=== PATIENT | female | born 1960 | race Caucasian/White ===

== ENCOUNTER 2020-06-22 09:55 | Emergency (ER) | payer BC, OTHER ==
--- NOTE | 2020-06-22 10:11 | EDM.PDOC ---
ED HPI GENERAL MEDICAL PROBLEM - General Stated Complaint: CHEST PAIN Time Seen by Provider: 06/22/20 09:57 Source of Information: Reports: Patient, Family History Limitations: Reports: No Limitations - History of Present Illness INITIAL COMMENTS - FREE TEXT/NARRATIVE: c/o pain in arms and chest x 12h pt states she was home yesterday, felt well, at 10p she had sharp pain in her R forearm that radiated up her arm across her chest and down her LUE, pain more in arms than chest, no pain with moving arms or shoulders, no pain with DB, shower did not help no cough, no sob, no n/v, no f/c/d not had chest or arm pain before pt was anxious on arrival, hyperventilating, patting her chest with her hand, she became more relaxed after MD and RN evaluation, discomfort resolved spontaneously on no meds no cardiac hx Meds: none, took ASA x 2 early this AM SH: smoked < 1 ppd x 3-5y, stopped 40y ago, desk job, 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, 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), here with FH: bro and father with CAD - Related Data Allergies Allergy/AdvReac Type Severity Reaction Status Date / Time Penicillins Allergy Unknown Other Verified 06/22/20 10:21 Home Meds: Home Meds NK [No Known Home Meds] 06/22/20 [History] ED ROS GENERAL - Review of Systems Review Of Systems: See Below Constitutional: Reports: No Symptoms HEENT: Reports: No Symptoms Respiratory: Reports: No Symptoms Cardiovascular: Reports: Chest Pain Endocrine: Reports: No Symptoms GI/Abdominal: Reports: No Symptoms : Reports: No Symptoms Musculoskeletal: Reports: Arm Pain Skin: Reports: No Symptoms Neurological: Reports: No Symptoms Psychiatric: Reports: No Symptoms Hematologic/Lymphatic: Reports: No Symptoms Immunologic: Reports: No Symptoms ED EXAM, GENERAL - Physical Exam Exam: See Below Exam Limited By: No Limitations General Appearance: Alert, WD/WN, Other (anxious, skin dry) Ears: Hearing Grossly Normal Nose: Normal Inspection Throat/Mouth: Normal Inspection, Normal Lips, Normal Voice, No Airway Compromise Head: Atraumatic, Normocephalic Neck: Normal Inspection, Supple, Non-Tender, Full Range of Motion. No: Lymph adenopathy (R), Lymphadenopathy (L) Respiratory/Chest: No Respiratory Distress, Lungs Clear, Normal Breath Sounds, Chest Non-Tender Cardiovascular: Regular Rate, Rhythm, No Edema, No Murmur GI/Abdominal: Soft, Non-Tender, No Distention Extremities: Normal Inspection, Normal Range of Motion, Non-Tender, No Pedal Edema, Other (chest wall NT, AC and GH joints NT, ROM of RUE without discomfort, no point tender) Neurological: Alert, Oriented, CN II-XII Intact, Normal Cognition, No Motor/Sensory Deficits Psychiatric: Anxious Skin Exam: Warm, Dry, Intact, Normal Color, No Rash Lymphatic: No Adenopathy #1 Interpretation EKG Interpretation Comments: normal, no ST change, no acute change, no comparison Course - Vital Signs Last Recorded V/S: Last Vital Signs Temp 36.3 C 06/22/20 10:00 Pulse 92 06/22/20 10:00 Resp 15 06/22/20 11:29 BP 141/76 H 06/22/20 11:29 Pulse Ox 98 06/22/20 11:29 - Orders/Labs/Meds Orders: Active Orders 24 hr Category Date Time Status EKG Documentation Completion [RC] ASDIRECTED Care 06/22/20 10:04 Ordered Chest 2V [CR] Stat Exams 06/22/20 10:03 Ordered EKG 12 Lead [EK] Routine Ther 06/22/20 10:03 Ordered Labs: Laboratory Tests 06/22/20 06/22/20 06/22/20 Range/Units 10:20 10:20 10:20 WBC 5.0 (3.0-10.3) x10-3/uL RBC 4.30 (3.60-5.20) x10(6)uL Hgb 13.7 (11.4-15.5) g/dL Hct 40.9 (34.2-48.2) % MCV 95.1 (76.7-100.5) fL MCH 31.8 (23.9-33.9) pg MCHC 33.5 (31.9-34.8) g/dL RDW 13.6 (12.3-16.5) % Plt Count 241 (151-488) x10(3)uL MPV 8.1 (7.1-12.4) fL Neut % (Auto) 59.5 (30.8-76.2) % Lymph % (Auto) 31.7 (18.4-52.1) % Ross % (Auto) 5.3 (4.4-15.7) % Eos % (Auto) 2.8 (0.6-8.1) % Baso % (Auto) 0.7 (0.2-1.5) % Neut # (Auto) 3.0 (1.5-6.3) x10-3/uL Lymph # (Auto) 1.6 (1.0-4.4) x10-3/uL Ross # (Auto) 0.3 (0.3-1.0) x10-3/uL Eos # (Auto) 0.1 (0.0-0.8) x10-3/uL Baso # (Auto) 0.0 (0.0-0.1) x10-3/uL D-Dimer, Quantitative 0.19 (0.0-0.59) mg/LFEU Sodium 142 (135-145) mmol/L Potassium 4.2 (3.5-5.3) mmol/L Chloride 104 (100-110) mmol/L Carbon Dioxide 25 (21-32) mmol/L BUN 25 H (7-18) mg/dL Creatinine 1.0 (0.55-1.02) mg/dL Est Cr Clr Drug Dosing 51.66 mL/min Estimated GFR (MDRD) 57 L (>60) BUN/Creatinine Ratio 25.0 H (9-20) Glucose 150 H (80-116) mg/dL Hemoglobin A1c (<5.7) % Calcium 8.8 (8.6-10.2) mg/dL Total Bilirubin 0.4 (0.1-1.3) mg/dL AST 17 (5-25) IU/L ALT 24 (12-36) U/L Alkaline Phosphatase 60 (56-112) IU/L Troponin I (4.0-60.3) pg/mL C-Reactive Protein (0.5-0.9) mg/dL Total Protein 6.9 (6.0-8.0) g/dL Albumin 3.5 (3.2-4.6) g/dL Globulin 3.4 g/dL Albumin/Globulin Ratio 1.0 TSH, Ultra Sensitive (0.36-3.74) IU/mL Urine Color (YELLOW) Urine Appearance (CLEAR) Urine pH (5.0-6.5) Ur Specific Central (1.010-1.025) Urine Protein (NEGATIVE) mg/dL Urine Glucose (UA) (NORMAL) mg/dL Urine Ketones (NEGATIVE) mg/dL Urine Occult Blood (NEGATIVE) Urine Nitrite (NEGATIVE) Urine Bilirubin (NEGATIVE) Urine Urobilinogen (NEGATIVE) mg/dL Ur Leukocyte Esterase (NEGATIVE) Urine RBC (0-5) Urine WBC (0-5) Ur Epithelial Cells 06/22/20 06/22/20 06/22/20 Range/Units 10:20 10:20 10:20 WBC (3.0-10.3) x10-3/uL RBC (3.60-5.20) x10(6)uL Hgb (11.4-15.5) g/dL Hct (34.2-48.2) % MCV (76.7-100.5) fL MCH (23.9-33.9) pg MCHC (31.9-34.8) g/dL RDW (12.3-16.5) % Plt Count (151-488) x10(3)uL MPV (7.1-12.4) fL Neut % (Auto) (30.8-76.2) % Lymph % (Auto) (18.4-52.1) % Ross % (Auto) (4.4-15.7) % Eos % (Auto) (0.6-8.1) % Baso % (Auto) (0.2-1.5) % Neut # (Auto) (1.5-6.3) x10-3/uL Lymph # (Auto) (1.0-4.4) x10-3/uL Ross # (Auto) (0.3-1.0) x10-3/uL Eos # (Auto) (0.0-0.8) x10-3/uL Baso # (Auto) (0.0-0.1) x10-3/uL D-Dimer, Quantitative (0.0-0.59) mg/LFEU Sodium (135-145) mmol/L Potassium (3.5-5.3) mmol/L Chloride (100-110) mmol/L Carbon Dioxide (21-32) mmol/L BUN (7-18) mg/dL Creatinine (0.55-1.02) mg/dL Est Cr Clr Drug Dosing mL/min Estimated GFR (MDRD) (>60) BUN/Creatinine Ratio (9-20) Glucose (80-116) mg/dL Hemoglobin A1c 5.9 H (<5.7) % Calcium (8.6-10.2) mg/dL Total Bilirubin (0.1-1.3) mg/dL AST (5-25) IU/L ALT (12-36) U/L Alkaline Phosphatase (56-112) IU/L Troponin I 6.9 (4.0-60.3) pg/mL C-Reactive Protein 0.6 (0.5-0.9) mg/dL Total Protein (6.0-8.0) g/dL Albumin (3.2-4.6) g/dL Globulin g/dL Albumin/Globulin Ratio TSH, Ultra Sensitive 1.26 (0.36-3.74) IU/mL Urine Color (YELLOW) Urine Appearance (CLEAR) Urine pH (5.0-6.5) Ur Specific Central (1.010-1.025) Urine Protein (NEGATIVE) mg/dL Urine Glucose (UA) (NORMAL) mg/dL Urine Ketones (NEGATIVE) mg/dL Urine Occult Blood (NEGATIVE) Urine Nitrite (NEGATIVE) Urine Bilirubin (NEGATIVE) Urine Urobilinogen (NEGATIVE) mg/dL Ur Leukocyte Esterase (NEGATIVE) Urine RBC (0-5) Urine WBC (0-5) Ur Epithelial Cells 06/22/20 Range/Units 11:10 WBC (3.0-10.3) x10-3/uL RBC (3.60-5.20) x10(6)uL Hgb (11.4-15.5) g/dL Hct (34.2-48.2) % MCV (76.7-100.5) fL MCH (23.9-33.9) pg MCHC (31.9-34.8) g/dL RDW (12.3-16.5) % Plt Count (151-488) x10(3)uL MPV (7.1-12.4) fL Neut % (Auto) (30.8-76.2) % Lymph % (Auto) (18.4-52.1) % Ross % (Auto) (4.4-15.7) % Eos % (Auto) (0.6-8.1) % Baso % (Auto) (0.2-1.5) % Neut # (Auto) (1.5-6.3) x10-3/uL Lymph # (Auto) (1.0-4.4) x10-3/uL Ross # (Auto) (0.3-1.0) x10-3/uL Eos # (Auto) (0.0-0.8) x10-3/uL Baso # (Auto) (0.0-0.1) x10-3/uL D-Dimer, Quantitative (0.0-0.59) mg/LFEU Sodium (135-145) mmol/L Potassium (3.5-5.3) mmol/L Chloride (100-110) mmol/L Carbon Dioxide (21-32) mmol/L BUN (7-18) mg/dL Creatinine (0.55-1.02) mg/dL Est Cr Clr Drug Dosing mL/min Estimated GFR (MDRD) (>60) BUN/Creatinine Ratio (9-20) Glucose (80-116) mg/dL Hemoglobin A1c (<5.7) % Calcium (8.6-10.2) mg/dL Total Bilirubin (0.1-1.3) mg/dL AST (5-25) IU/L ALT (12-36) U/L Alkaline Phosphatase (56-112) IU/L Troponin I (4.0-60.3) pg/mL C-Reactive Protein (0.5-0.9) mg/dL Total Protein (6.0-8.0) g/dL Albumin (3.2-4.6) g/dL Globulin g/dL Albumin/Globulin Ratio TSH, Ultra Sensitive (0.36-3.74) IU/mL Urine Color Yellow (YELLOW) Urine Appearance Clear (CLEAR) Urine pH 5.0 (5.0-6.5) Ur Specific Central 1.030 H (1.010-1.025) Urine Protein Negative (NEGATIVE) mg/dL Urine Glucose (UA) Normal (NORMAL) mg/dL Urine Ketones Negative (NEGATIVE) mg/dL Urine Occult Blood Negative (NEGATIVE) Urine Nitrite Negative (NEGATIVE) Urine Bilirubin Negative (NEGATIVE) Urine Urobilinogen Normal (NEGATIVE) mg/dL Ur Leukocyte Esterase Negative (NEGATIVE) Urine RBC 0-5 (0-5) Urine WBC 0-5 (0-5) Ur Epithelial Cells Occasional - Re-Assessments/Exams Free Text/Narrative Re-Assessment/Exam: 06/22/20 12:30 BUN inc'd, u/a neg except SG 1.030, BUN may need to be repeated as oupt. Pt did eat cereal with mild for bfast plus fluids. BS 150 c/w pain and stress as A1C is 5.9. TSH neg as well. No evidence of pul or CV issues. CxR 2v is neg on prelim ED read Anxiety and stress appear to have been contributing factors. Pain resolved completely on arrival at ED without meds. Departure - Departure Time of Disposition: 12:27 Disposition: Home, Self-Care 01 Condition: Good Clinical Impression: Bilateral arm pain, Non-cardiac chest pain, Elevated BUN, Hyperglycemia, Mild dehydration Instructions: Nonspecific Chest Pain, Adult, Dehydration, Adult Additional Instructions: For pain and inflammation, take ibuprofen 200 mg 3 tabs and/or acetaminophen 500 mg 2 tabs 4 times a day as needed. No limitation of activities. See your PCP in 2 days for further evaluation and recommendations. Return to Emergency Department if you are feeling worse. Sepsis Event Note (ED) - Focused Exam Vital Signs: Vital Signs Temp Pulse Resp BP Pulse Ox 06/22/20 11:29 15 141/76 H 98 06/22/20 11:15 16 129/88 99 06/22/20 10:45 17 151/77 H 98 06/22/20 10:30 17 138/83 98 06/22/20 10:15 21 H 147/104 H 98 06/22/20 10:00 36.3 C 92 23 H 158/81 H 100 - My Orders Last 24 Hours: My Active Orders 06/22/20 10:03 Chest 2V [CR] Stat EKG 12 Lead [EK] Routine 06/22/20 10:04 EKG Documentation Completion [RC] ASDIRECTED - Assessment/Plan Last 24 Hours: My Active Orders 06/22/20 10:03 Chest 2V [CR] Stat EKG 12 Lead [EK] Routine 06/22/20 10:04 EKG Documentation Completion [RC] ASDIRECTED
[2020-06-22 11:04] LABS: HEMOGLOBIN A1C 5.9 % (<5.7)
--- NOTE | 2020-06-23 12:39 | CR ---
INDICATION: Pain in both upper arms and chest x12 hours. CHEST TWO VIEWS: PA and lateral views of the chest were obtained 06/22/20 - no comparisons. The heart and mediastinum were unremarkable except to note mild tortuous of the aorta. A minimal dextroconvex scoliosis of the upper middle thoracic spine is noted. A definite active infiltrate or effusion was not identified. There is suggestion of exogenous obesity. IMPRESSION: No acute process. MTDD
== END 2020-06-22 12:30 | disposition home or self-care (01) ==
LOC: FB.ED 09:55
DX: R07.89 Other chest pain (principal); M79.602 Pain in left arm; M79.601 Pain in right arm; E86.0 Dehydration; R79.89 Other specified abnormal findings of blood chemistry; Z88.0 Allergy status to penicillin; Z87.891 Personal history of nicotine dependence
CPT/HCPCS: 36415; 71046; 80053; 81001; 83036; 84443; 84484; 85025; 85379; 86140; 93005; 99285-25

== ENCOUNTER 2022-02-18 15:27 | Emergency (ER) | payer OTHER ==
[2022-02-18 15:58] LABS: ESTIMATED GFR 57 mL/min (>60)
[2022-02-18 17:25] LABS: CORONAVIRUS COVID-19 NAA NEGATIVE (NEGATIVE)
== END 2022-02-18 19:30 | disposition home or self-care (01) ==
LOC: FB.ED 15:27
DX: I20.9 Angina pectoris, unspecified (principal); Z88.0 Allergy status to penicillin; Z20.822 Contact with and (suspected) exposure to COVID-19
CPT/HCPCS: 0241U; 36415; 71045; 80053; 83735; 84484; 85025; 85610; 86140; 93005; 93010; 99285

== ENCOUNTER → 2023-06-17 | Day surgery (SDC) | payer OTHER ==
[~2023-06-17] MED LIST: Midazolam 1 MG/ML 2 ML SDV IV ONE; Propofol 200 MG/20 ML SDV IV ONE; Sodium Chloride 0.9% 10 ML Syringe FLUSH PRN
[2023-06-17] MEDS: Lactated Ringers 1,000 ML IV SCH (08:39)
[2023-06-17] MEDS: Simethicone Drops 40 MG/0.6 ML 30 ML Bottle PO ONE (09:40)
== END ==
LOC: FB.SDS 07:35
PROVIDERS: ATTEND Surgery
DX: Z12.11 Encounter for screening for malignant neoplasm of colon (principal); D12.6 Benign neoplasm of colon, unspecified; I25.10 Atherosclerotic heart disease of native coronary artery without angina pectoris; E78.5 Hyperlipidemia, unspecified; Z79.82 Long term (current) use of aspirin; Z79.899 Other long term (current) drug therapy
CPT/HCPCS: 00811; 45385; 88305; A9270; J2250; J2704; J7120